=== PATIENT | female | born 1950 | race Caucasian/White ===

== ENCOUNTER 2020-11-12 11:35 | Day surgery (SDC) | payer OTHER ==
[~2020-11-12] VITALS: Ht 177.8 cm; Wt 65.8 kg
[~2020-11-12 11:35] MED LIST: AMOX500 PO; Advil200 M1; Aspirin EC81 MG PO; CHOL10002; LEVSOD50; LEVSOD75 PO; METO25 PO; MULVITMIND; PSEU120ER
[2020-11-12] MEDS ORDERED: ELIQUIS5 MG (12:08)
== END 2020-11-12 14:17 | disposition home or self-care (01) ==
LOC: ORSCSDS 11:35
PROVIDERS: Internal Medicine Gastroenterology
PROC: 0DBM8ZX Excision of Descending Colon, Via Natural or Artificial Opening Endoscopic, Diagnostic (ICD-10-PCS; principal; 2020-11-12 13:00)
DX: Z12.11 Encounter for screening for malignant neoplasm of colon (principal); Z86.010 Personal history of colon polyps; D12.4 Benign neoplasm of descending colon; K57.30 Diverticulosis of large intestine without perforation or abscess without bleeding; I48.91 Unspecified atrial fibrillation; E03.9 Hypothyroidism, unspecified; Z79.01 Long term (current) use of anticoagulants; Z79.899 Other long term (current) drug therapy
CPT/HCPCS: 88305; J2704; J7120